=== PATIENT | male | born 1980 | race Caucasian/White ===

== ENCOUNTER 2020-09-14 13:28 | Inpatient (IN) | payer MEDICAID, OTHER ==
--- NOTE | 2020-09-14 13:56 | ED ---
General Adult HPI - General Source: patient Mode of arrival: ambulatory Limitations: no limitations <Luis Kwan D - Last Filed: 09/14/20 14:58> <Isaac Stern Waldemar - Last Filed: 09/14/20 18:16> - General Chief complaint: Psychiatric Symptoms Stated complaint: Mental health Time Seen by Provider: 09/14/20 13:43 - History of Present Illness Initial comments: Dictation was produced using [employer] dictation software. please excuse any grammatical, word or spelling errors. This patient was cared for during a federal and state declared state of emergency secondary to Covid 19 Chief Complaint: 39-year-old male presents with paranoid behavior History of Present Illness: 39-year-old male presents for paranoid behavior. He is accompanied by his best friend. Patient reports that he feels like people are following him telling him to commit suicide. He is having visual and auditory hallucinations. He has no history of psych issues. Friend when interviewed outside of the room states that there is concern that patient is having met related psychosis. Patient is visiting a friend who uses meth and reports that patient has also used meth. Patient has showing signs of bizarre behavior. Denies any psychiatric complaints. Does not take any medications. The ROS documented in this emergency department record has been reviewed and confirmed by me. Those systems with pertinent positive or negative responses have been documented in the HPI. All other systems are other negative and/or noncontributory. PHYSICAL EXAM: General Impression: Alert and oriented x3, not in acute distress HEENT: Normocephalic atraumatic, extra-ocular movements intact, pupils equal and reactive to light bilaterally, mucous membranes moist. Cardiovascular: Heart regular rate and rhythm Chest: Able to complete full sentences, no retractions, no tachypnea Abdomen: abdomen soft, non-tender, non-distended, no organomegaly Musculoskeletal: Pulses present and equal in all extremities, no peripheral melanie a Motor: no focal deficits noted Neurological: CN II-XII grossly intact, no focal motor or sensory deficits noted Skin: Intact with no visualized rashes Psych: Tangential speech ED course: 39-year-old male presents with clinical presentation consistent with psychosis. Vital Signs upon arrival are within acceptable limits. Laboratory evaluation obtained. CBC, metabolic panel is unremarkable. R otavirus negative. Urine drug screen positive for amphetamines. 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 Patient medically cleared for EPS evaluation. Patient care is signed out to oncoming physician for follow-up of the patient's recommendations. (Luis Kwan) - Related Data Home Medications Medication Instructions Recorded Confirmed No Known Home Medications 09/14/20 09/14/20 Allergies Allergy/AdvReac Type Severity Reaction Status Date / Time No Known Allergies Allergy Verified 09/14/20 14:36 Review of Systems ROS Other: All systems not noted in ROS Statement are negative. <Luis Kwan - Last Filed: 09/14/20 14:58> ROS Other: All systems not noted in ROS Statement are negative. <Isaac Stern - Last Filed: 09/14/20 18:16> ROS Statement: Those systems with pertinent positive or pertinent negative responses have been documented in the HPI. Past Medical History Past Medical History: No Reported History History of Any Multi-Drug Resistant Organisms: None Reported Past Surgical History: No Surgical Hx Reported Past Psychological History: Anxiety Smoking Status: Former smoker Past Alcohol Use History: None Reported Past Drug Use History: None Reported <Luis Kwan - Last Filed: 09/14/20 14:58> General Exam Limitations: no limitations <Luis Kwan - Last Filed: 09/14/20 14:58> Course Vital Signs 09/14/20 13:37 Temperature 98.2 F Pulse Rate 98 Respiratory 18 Rate Blood Pressure 139/89 O2 Sat by Pulse 99 Oximetry Medical Decision Making - Lab Data Result diagrams: 09/14/20 13:55 09/14/20 13:55 <Luis Kwan - Last Filed: 09/14/20 14:58> - Lab Data Result diagrams: 09/14/20 13:55 09/14/20 13:55 <Isaac Stern - Last Filed: 09/14/20 18:16> - Medical Decision Making Patient has been evaluated by EPS and will be admitted to this institution for further psychiatric evaluation and treatment. (Isaac Stern) - Lab Data Lab Results 09/14/20 09/14/20 09/14/20 Range/Units 13:55 13:55 13:55 WBC 10.6 (3.8-10.6) k/uL RBC 5.30 (4.30-5.90) m/uL Hgb 16.1 (13.0-17.5) gm/dL Hct 45.5 (39.0-53.0) % MCV 85.8 (80.0-100.0) fL MCH 30.4 (25.0-35.0) pg MCHC 35.4 (31.0-37.0) g/dL RDW 12.2 (11.5-15.5) % Plt Count 254 (150-450) k/uL MPV 9.0 Neutrophils % 68 % Lymphocytes % 20 % Monocytes % 7 % Eosinophils % 4 % Basophils % 1 % Neutrophils # 7.2 (1.3-7.7) k/uL Lymphocytes # 2.1 (1.0-4.8) k/uL Monocytes # 0.7 (0-1.0) k/uL Eosinophils # 0.4 (0-0.7) k/uL Basophils # 0.1 (0-0.2) k/uL Sodium (137-145) mmol/L Potassium (3.5-5.1) mmol/L Chloride (98-107) mmol/L Carbon Dioxide (22-30) mmol/L Anion Gap mmol/L BUN (9-20) mg/dL Creatinine (0.66-1.25) mg/dL Est GFR (CKD-EPI)AfAm (>60 ml/min/1.73 sqM) Est GFR (CKD-EPI)NonAf (>60 ml/min/1.73 sqM) Glucose (74-99) mg/dL Calcium (8.4-10.2) mg/dL Urine Opiates Screen Not Detected (NotDetected) Ur Oxycodone Screen Not Detected (NotDetected) Urine Methadone Screen Not Detected (NotDetected) Ur Propoxyphene Screen Not Detected (NotDetected) Ur Barbiturates Screen Not Detected (NotDetected) U Tricyclic Antidepress Not Detected (NotDetected) Ur Phencyclidine Scrn Not Detected (NotDetected) Ur Amphetamines Screen Detected H (NotDetected) U Methamphetamines Scrn Detected H (NotDetected) U Benzodiazepines Scrn Not Detected (NotDetected) Urine Cocaine Screen Not Detected (NotDetected) U Marijuana (THC) Screen Not Detected (NotDetected) Coronavirus (PCR) Not Detected (Not Detectd) 09/14/20 Range/Units 13:55 WBC (3.8-10.6) k/uL RBC (4.30-5.90) m/uL Hgb (13.0-17.5) gm/dL Hct (39.0-53.0) % MCV (80.0-100.0) fL MCH (25.0-35.0) pg MCHC (31.0-37.0) g/dL RDW (11.5-15.5) % Plt Count (150-450) k/uL MPV Neutrophils % % Lymphocytes % % Monocytes % % Eosinophils % % Basophils % % Neutrophils # (1.3-7.7) k/uL Lymphocytes # (1.0-4.8) k/uL Monocytes # (0-1.0) k/uL Eosinophils # (0-0.7) k/uL Basophils # (0-0.2) k/uL Sodium 138 (137-145) mmol/L Potassium 4.2 (3.5-5.1) mmol/L Chloride 105 (98-107) mmol/L Carbon Dioxide 26 (22-30) mmol/L Anion Gap 7 mmol/L BUN 12 (9-20) mg/dL Creatinine 0.71 (0.66-1.25) mg/dL Est GFR (CKD-EPI)AfAm >90 (>60 ml/min/1.73 sqM) Est GFR (CKD-EPI)NonAf >90 (>60 ml/min/1.73 sqM) Glucose 199 H (74-99) mg/dL Calcium 9.4 (8.4-10.2) mg/dL Urine Opiates Screen (NotDetected) Ur Oxycodone Screen (NotDetected) Urine Methadone Screen (NotDetected) Ur Propoxyphene Screen (NotDetected) Ur Barbiturates Screen (NotDetected) U Tricyclic Antidepress (NotDetected) Ur Phencyclidine Scrn (NotDetected) Ur Amphetamines Screen (NotDetected) U Methamphetamines Scrn (NotDetected) U Benzodiazepines Scrn (NotDetected) Urine Cocaine Screen (NotDetected) U Marijuana (THC) Screen (NotDetected) Coronavirus (PCR) (Not Detectd) Disposition <Luis Kwan - Last Filed: 09/14/20 14:58> Is patient prescribed a controlled substance at d/c from ED?: No Decision to Admit Reason: Admit from EC Decision Date: 09/14/20 Decision Time: 18:16 <Isaac Stern - Last Filed: 09/14/20 18:16> Clinical Impression: Psychosis Disposition: ADMITTED IP TO THIS HOSP Condition: Stable Referrals: None,Stated [Primary Care Provider] - 1-2 days
[2020-09-14 14:28] LABS: African American GFR (CKD) >90 (>60 ml/min/1.73 sqM); Anion Gap 7 mmol/L; Blood Urea Nitrogen 12 mg/dL (9-20); Calcium 9.4 mg/dL (8.4-10.2); Carbon Dioxide 26 mmol/L (22-30); Chloride 105 mmol/L (98-107); Glucose 199 mg/dL (74-99); Non-African American GFR(CKD) >90 (>60 ml/min/1.73 sqM); Potassium 4.2 mmol/L (3.5-5.1); Sodium 138 mmol/L (137-145)
[2020-09-14 14:36] LABS: Amphetamine Screen,Urine Detected (NotDetected); Barbiturate Screen,Urine Not Detected (NotDetected); Benzodiazepines Screen,Urine Not Detected (NotDetected); Cocaine Screen,Urine Not Detected (NotDetected); Methadone Screen, Urine Not Detected (NotDetected); Opiate Screen,Urine Not Detected (NotDetected); Oxycodone Screen, Urine Not Detected (NotDetected); Phencyclidine Screen,Urine Not Detected (NotDetected); Tricyclic Antidepressant,Urine Not Detected (NotDetected); Urn Cannabinoid Scrn Not Detected (NotDetected)
[2020-09-14 14:43] LABS: Basophils # (A) 0.1 k/uL (0-0.2); Basophils % (A) 1 %; Eosinophils # (A) 0.4 k/uL (0-0.7); Eosinophils % (A) 4 %; HCT 45.5 % (39.0-53.0); HGB 16.1 gm/dL (13.0-17.5); Lymphocytes # (A) 2.1 k/uL (1.0-4.8); Lymphocytes % (A) 20 %; MCH 30.4 pg (25.0-35.0); MCHC 35.4 g/dL (31.0-37.0); MCV 85.8 fL (80.0-100.0); Monocytes # (A) 0.7 k/uL (0-1.0); Monocytes % (A) 7 %; Neutrophils # (A) 7.2 k/uL (1.3-7.7); Neutrophils % (A) 68 %; Platelet Count 254 k/uL (150-450); RDW 12.2 % (11.5-15.5); WBC 10.6 k/uL (3.8-10.6)
[2020-09-14] MEDS ORDERED: MAG HYDROX/AL HYDROX/SIMETH 30 ML CUP PO PRN (19:13)
[2020-09-14] MEDS ORDERED: ACETAMINOPHEN TAB 325 MG TAB PO PRN (19:13)
[2020-09-14] MEDS ORDERED: MAGNESIUM HYDROXIDE 2,400 MG/10 ML CUP PO PRN (19:13)
[2020-09-14] MEDS ORDERED: LORazepam 1 MG TAB PO PRN (19:13)
[2020-09-14] MEDS ORDERED: LORazepam 2 MG/ML INJ IM PRN (19:17)
[2020-09-14] MEDS ORDERED: HALOPERIDOL LACTATE 5 MG/ML 1 ML VIAL IM PRN (19:18)
--- NOTE | 2020-09-15 00:30 | P.MDCNMH ---
History of Present Illness H&P Date: 09/14/20 Chief Complaint: medical eval 39 year old male wtih no significant past medical history patient was brought in by his fiend due to bizarre behavior , which described paranoid ideation. he feels people are watching him, and he is being followed. he also reports seeing them at times. otherwise he denies any medical concerns , denies any fever, chills, chest pain , trouble breathing, abd pain , nausea , vomiting Review of Systems Pertinent positives as noted in HPI. All other systems were reviewed and are negative Past Medical History Past Medical History: No Reported History History of Any Multi-Drug Resistant Organisms: None Reported Past Surgical History: No Surgical Hx Reported Past Anesthesia/Blood Transfusion Reactions: No Reported Reaction Past Psychological History: Anxiety Smoking Status: Vaper Past Alcohol Use History: None Reported Past Drug Use History: Methamphetamine Additional Drug Use History / Comment(s): UDS positive for Methamphetamines and amphetamines. Pt admits to meth use twice a week for the past 4 months. Also admits to adderall use - Past Family History family Family Medical History: No Reported History Medications and Allergies Home Medications Medication Instructions Recorded Confirmed Type No Known Home Medications 09/14/20 09/14/20 History Allergies Allergy/AdvReac Type Severity Reaction Status Date / Time No Known Allergies Allergy Verified 09/14/20 14:36 Physical Exam Vitals: Vital Signs Temp Pulse Pulse Resp BP BP Pulse Ox 09/14/20 22:02 98.1 F 85 16 109/72 97 09/14/20 13:37 98.2 F 98 18 139/89 99 Intake and Output 09/14/20 09/14/20 09/15/20 14:59 22:59 06:59 Other: Weight 73.482 kg 67.585 kg Constitutional: No acute distress, conversant, pleasant Eyes: Anicteric sclerae, moist conjunctiva, Pupils equal round reactive to light ENMT: NC/AT Oropharynx clear, no erythema, or exudates Neck: Supple, FROM, no masses, or JVD No carotid bruits No thyromegaly Lungs: Clear to auscultation Clear to percussion Normal respiratory effort, no accessory muscle use Cardiovascular: Heart regular in rate and rhythm, No murmurs, gallops, or rubs No peripheral edema Abdominal: Soft Nontender, no guarding, rebound or rigidity Abdomen moving with respiration Normoactive bowel sounds No hepatomegaly, No splenomegaly No palpable mass No abdominal wall hernia noted Skin: Normal temperature, tone, texture, turgor No induration No subcutaneous nodules No rash, lesions No ulcers Extremities: No digital cyanosis No clubbing Pedal pulses intact and symmetrical Radial pulses intact and symmetrical No calf tenderness Psychiatric: Alert and oriented to person, place and time Appropriate affect fair judgement Neuro Muscles Strength 5/5 in all 4 extremities Sensation to light touch grossly present throughout Cranial nerves II-XII grossly intact No focal sensory deficits Lymphatics: no palpable cervical or supraclavicular , or inguinal lymph nodes Cranial Nerve Examination - Cranial Nerves Cranial Nerve II- Optic: Intact Cranial Nerve III- Oculomotor: Intact Cranial Nerve IV- Trochlear: Intact Cranial Nerve V- Trigeminal: Intact Cranial Nerve - Abducens: Intact Cranial Nerve VII- Facial: Intact Cranial Nerve VIII- Auditory: Intact Cranial Nerve IX- Glossopharyngeal: Intact Cranial Nerve X- Vagus: Intact Cranial Nerve XI- Accessory: Intact Cranial Nerve XII- Hypoglossal: Intact Results CBC & Chem 7: 09/14/20 13:55 09/14/20 13:55 Labs: Abnormal Lab Results - Last 24 Hours (Table) 09/14/20 09/14/20 Range/Units 13:55 13:55 Glucose 199 H (74-99) mg/dL Ur Amphetamines Screen Detected H (NotDetected) U Methamphetamines Scrn Detected H (NotDetected) Assessment and Plan Assessment: acute psychosis delusional ideation management per psych hyperglycemia rule OUT DM check A1 C labs reviewed Thank you for allowing us to participate in the care of this patient. We will follow peripherally. Do not hesitate to contact us with questions. Someone can be reached from the [facility] hospitalist group at all hours of the day at [phone].
[2020-09-15] MEDS ORDERED: MELATONIN 3 MG TABLET PO PRN (11:21)
--- NOTE | 2020-09-15 13:25 | P.HP ---
Psychiatric H&P - . H&P Date: 09/15/20 History & Physical: Allergies Allergy/AdvReac Type Severity Reaction Status Date / Time No Known Allergies Allergy Verified 09/14/20 14:36 Vital Signs Temp 97.9 F 09/15/20 09:14 Pulse 80 09/15/20 06:24 Resp 16 09/15/20 06:24 BP 117/69 09/15/20 06:24 Pulse Ox 97 09/14/20 22:02 Intake & Output 09/14/20 09/15/20 09/15/20 18:59 06:59 18:59 Weight 73.482 kg 67.585 kg Laboratory Last Values WBC 10.6 k/uL (3.8-10.6) 09/14/20 13:55 RBC 5.30 m/uL (4.30-5.90) 09/14/20 13:55 Hgb 16.1 gm/dL (13.0-17.5) 09/14/20 13:55 Hct 45.5 % (39.0-53.0) 09/14/20 13:55 MCV 85.8 fL (80.0-100.0) 09/14/20 13:55 MCH 30.4 pg (25.0-35.0) 09/14/20 13:55 MCHC 35.4 g/dL (31.0-37.0) 09/14/20 13:55 RDW 12.2 % (11.5-15.5) 09/14/20 13:55 Plt Count 254 k/uL (150-450) 09/14/20 13:55 MPV 9.0 09/14/20 13:55 Neutrophils % 68 % 09/14/20 13:55 Lymphocytes % 20 % 09/14/20 13:55 Monocytes % 7 % 09/14/20 13:55 Eosinophils % 4 % 09/14/20 13:55 Basophils % 1 % 09/14/20 13:55 Neutrophils # 7.2 k/uL (1.3-7.7) 09/14/20 13:55 Lymphocytes # 2.1 k/uL (1.0-4.8) 09/14/20 13:55 Monocytes # 0.7 k/uL (0-1.0) 09/14/20 13:55 Eosinophils # 0.4 k/uL (0-0.7) 09/14/20 13:55 Basophils # 0.1 k/uL (0-0.2) 09/14/20 13:55 Sodium 138 mmol/L (137-145) 09/14/20 13:55 Potassium 4.2 mmol/L (3.5-5.1) 09/14/20 13:55 Chloride 105 mmol/L (98-107) 09/14/20 13:55 Carbon Dioxide 26 mmol/L (22-30) 09/14/20 13:55 Anion Gap 7 mmol/L 09/14/20 13:55 BUN 12 mg/dL (9-20) 09/14/20 13:55 Creatinine 0.71 mg/dL (0.66-1.25) 09/14/20 13:55 Est GFR (CKD-EPI)AfAm >90 (>60 ml/min/1.73 sqM) 09/14/20 13:55 Est GFR (CKD-EPI)NonAf >90 (>60 ml/min/1.73 sqM) 09/14/20 13:55 Glucose 199 mg/dL (74-99) H 09/14/20 13:55 Calcium 9.4 mg/dL (8.4-10.2) 09/14/20 13:55 TSH 1.840 mIU/L (0.465-4.680) 09/14/20 13:55 Urine Opiates Screen Not Detected (NotDetected) 09/14/20 13:55 Ur Oxycodone Screen Not Detected (NotDetected) 09/14/20 13:55 Urine Methadone Screen Not Detected (NotDetected) 09/14/20 13:55 Ur Propoxyphene Screen Not Detected (NotDetected) 09/14/20 13:55 Ur Barbiturates Screen Not Detected (NotDetected) 09/14/20 13:55 U Tricyclic Antidepress Not Detected (NotDetected) 09/14/20 13:55 Ur Phencyclidine Scrn Not Detected (NotDetected) 09/14/20 13:55 Ur Amphetamines Screen Detected (NotDetected) H 09/14/20 13:55 U Methamphetamines Scrn Detected (NotDetected) H 09/14/20 13:55 U Benzodiazepines Scrn Not Detected (NotDetected) 09/14/20 13:55 Urine Cocaine Screen Not Detected (NotDetected) 09/14/20 13:55 U Marijuana (THC) Screen Not Detected (NotDetected) 09/14/20 13:55 Coronavirus (PCR) Not Detected (Not Detectd) 09/14/20 13:55 09/15/20 13:16 IDENTIFYING DATA: Patient is a 39-year-old male currently lives with his roommates in a house is single has 2 kids and 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 HPI: Patient presented to the hospital yesterday with a friend due to paranoid and bizarre behavior at home. According to ER report patient was apparently complaining of people following him and having auditory and visual hallucinations. Patient apparently has no history of psychiatric issues in the past. He was admitting to methamphetamine use and had a UDS which was positive for meth. Patient was interviewed in the room and appeared to be disheveled in appearance. He claims that "I was doing things I don't remember". He states that people often telling him that he was "caught on camera" and claims that he was found wandering around aimlessly. He claims that he has been "overly scared" about his behaviors. He was alert and oriented 3. He states that this is been his first time that he has had a psychotic episode. He claims that he is using methamphetamine approximately a week ago for the past 4 months. He states that he is using approximately $50 which could last him a whole week. He states that he does have mild paranoia at this time and does not like interacting with people around him especially on the unit at this time. He claims that he is trying to keep to himself. He claims that he quit his job 2 days ago due to "feeling paranoid". He states that his mood is "pissed" however denies any depression. He is denying any anxiety at this time. He states his sleep has been fair and appetite is been poor. Patient denies any suicidal or homicidal ideations intent or plan. At this time patient denies any auditory or visual hallucinations. Patient denies any flight of ideas racing thoughts and increased in goal directed behavior. Patient admits to using methamphetamine as described above. He denies using any cigarettes and occasional alcohol. PAST PSYCHIATRIC HISTORY: Patient states that he has no psychiatric history. Patient denies being on any psychiatric medications. Patient denies any previous psychiatric hospitalizations. Patient denies any psychiatric outpatient follow- up. Patient denies any history of suicide attempts in the past. PMH:denies ALLERGIES: as per EMR CHEMICAL DEPENDENCY HISTORY: as per HPI FAMILY PSYCHIATRIC/SUBSTANCE USE HISTORY: denies SOCIAL HISTORY: Patient was born and raised in [facility]. He states that he was adopted at the age of 7. He does not know anything about his biological parents. He claims that he completed his GED and did some college in IT. He denies having any legal history. He has 2 kids, currently lives with roommates and is single and is now unemployed. MENTAL STATUS EXAM: General Appearance: Patient appears to be thin, disheveled in appearance, stated age is alert, directable, and attempts to cooperate. Patient appears to have poor hygiene and grooming. Behavior: Patient is seated without any agitated behavior. Poor eye contact Speech: Patient's speech is fluent and nonpressured. Mood/Affect: Patient reports their mood is "pissed", affect is congruent and constricted. Suicidality/Homicidality: Patient denies having any homicidal ideation intent or plan. Denies any suicidal ideations intent or plan Perceptions: Patient denies any visual hallucinations and denies any auditory hallucinations Though content/process: Vague, guarded. [place]. Poverty of content. Memory and concentration: AOX3, grossly intact for the purposes of this session. Can spell "WORLD" backwards Judgment and insight: poor STRENGTHS/WEAKNESSES: strength is that patient is resilient. 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 Patient has signed adult voluntary form and medication consent and is placed in patient's chart. -Medications : Will start patient on Risperdal 1 mg daily at bedtime for psy chosis/mood stabilization. Melatonin when necessary for insomnia. -Ativan and Haldol PRN for agitation/aggression -Patient was counselled on substance abuse and desired to cut back on use -Patient was informed of the risks, benefits and side effects of the medication and patient verbally consented to taking the medications. Patient signed med consent form and was placed in chart. -Internal Medicine consult to perform medical evaluation and physical. -NRT - not needed as patient does not smoke -SW on board for discharge planning. Encourage patient to participate in groups to work on coping skills. Patient is declining rehab at this time and states that he wants to quit "cold turkey".
[2020-09-15 16:13] LABS: Hemoglobin A1C 9.4 % (4.0-6.0)
[2020-09-15] MEDS ORDERED: risperiDONE 1 MG TAB PO SCH (21:00)
[2020-09-16 08:07] LABS: Glucose,Whole Blood 100 mg/dL (75-99)
[2020-09-16] MEDS: INSULIN ASPART (NovoLOG) 100 UNIT/ML VIAL SQ SCH ×4 (08:09→21:09)
[2020-09-16 09:58] LABS: Appearance,Urine Clear (Clear); Bacteria,Urine Rare /hpf; Bilirubin,Urine 1+ (Negative); Blood,Urine Negative (Negative); Color,Urine Yellow; Glucose,Urine (UA) 2+ (Negative); Leukocyte Esterase,Urine Negative (Negative); Mucus,Urine Many /hpf; Nitrite,Urine Negative (Negative); Protein,Urine 1+ (Negative); RBC,Urine 1 /hpf (0-5); Specific Gravity,Urine 1.032 (1.001-1.035); WBC,Urine 3 /hpf (0-5)
[2020-09-16 10:01] LABS: Ketones,Urine 3+ (Negative)
[2020-09-16 12:54] LABS: Glucose,Whole Blood 133 mg/dL (75-99)
[2020-09-16 15:03] VITALS: BMI 21.9
--- NOTE | 2020-09-16 15:05 | PN ---
PROGRESS NOTE DATE OF SERVICE: 09/16/2020. CHIEF COMPLAINT: The patient was paranoid. He had bizarre behavior at home. He was reporting auditory and visual hallucinations and believes that people were following him. INTERVAL HISTORY: Patient has been doing fair. He had a quiet day yesterday. He did not attend groups yesterday. He does come out in the day area and will interact a little with others. He tends to be quiet and keep to himself. He did attend groups today and in one group, he indicated that he was not having any thoughts about harming himself or others. He believed that he could go home and would be safe. He noted on a 1-10 scale that he rated anxiety as 0 and depression as 0. He slept fair last night. Today he has been up. When I reviewed his history, it is noted that he had been using methamphetamines about 50 dollars worth a week over the last few months. He said his last use was 10 days ago. He noted that over the last 2-1/2 weeks, he started having increasing problems with worries that likely turned into fears and paranoia. He said it seemed to start out with his getting hacked on his E-mail at work and then that seemed to be followed by a problem he had with his cellphone as well. 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 He notes that going back at least to April, he had made comments a different times to coworkers about odd things going on for him. He was aware that he was making some of these kinds statements and expressing concerns in April, May and July. It is noted that he presented to the emergency room on the at 2 p.m. On the day before that, he had gone to [facility] with similar kind of concerns. What raised his level of concern was that people around him were saying that things were happening that he did not believe were so. He thought they said that he was at someone's house and that there was a video of it from a door alarm, though he thinks that that did not happen. He said he started feeling quite anxious because he thought people were saying things were going on that he was not aware of. He does acknowledge that in the last several days, he started having fears that people were in cars and following him. He said that he could identify 30 or 40 cars and that one of the cars in the group had a sign on it specific to him. He said when he would talk about this, he realized that it sounded very bizarre and likely highly unusual, though at the same time he said his experience was that it was as real as anything else as he thinks about it today he does seem to be hesitant about whether he could acknowledge it as a clear hallucination and something in his mind as opposed to something that is real. In addition to other issues, on admission, he had a hemoglobin A1c of 9.4. On his admission blood work, his glucose was 199. Today at 12 noon, it was 133. Other lab work was unremarkable. He was started on Risperdal. He does not identify any problems with Risperdal. His main issue today is that he feels that he is ready to be discharged and does not want to continue in the hospital any longer. In the patient's history, he states that he does not identify any significant past problems with depression, anxiety or panic. He has not had a past history of hallucinations. MENTAL STATUS EXAM: Patient sat with some restlessness. Eye contact was fair at best. He answered questions with brief responses. He might say 1 or 2 words, though he did not really elaborate. He was not spontaneous or interactive. His affect was flat and anxious. His mood dysphoric. He was fairly distressed. He continues to show some indications of paranoid thinking. He voices no thoughts of harm. Cognition is clear. ASSESSMENT: I will continue the current diagnosis and treatment plan. We will continue to make efforts to engage the patient in individual and group therapeutic activities. I will increase the patient's Risperdal to 3 mg a day. I had an extensive discussion with the patient regarding treatment issues. I indicated that I would recommend continuing hospitalization at least through the weekend. The primary reason for this is the degree of delusional thinking that the patient had that may have been precipitated by drug use, though not clearly just drug induced psychosis. This would be the case given that he has been 10 days free of methamphetamines and has had the worst of these issues just in the last few days. We discussed that the course of his psychosis is unpredictable. In addition, I noted that we would get evaluation for his elevated blood sugar and get things set up for discharge planning including followup for his blood sugars as well as for mental health issues. We will [facility]. I indicated that we need additional days to assess for stability of his thoughts and appropriateness of his medication. I discussed the potential risks regarding antipsychotic medications in terms of aggravating blood sugar issues and that this will need to be taking into account as part of followup therapy. We will focus on stabilization and discharge planning. JONATHAN / KEKE: [id number] / BELEM
[2020-09-16] MEDS ORDERED: risperiDONE 1 MG TAB PO SCH (21:00)
[2020-09-16] MEDS: INSULIN DETEMIR (LEVEMIR) 100 UNIT/ML SYR SQ SCH (22:03)
[2020-09-17 06:49] VITALS: RESP 16
[2020-09-17] MEDS: INSULIN ASPART (NovoLOG) 100 UNIT/ML VIAL SQ SCH ×4 (08:57→20:16)
[2020-09-17] MEDS: INSULIN DETEMIR (LEVEMIR) 100 UNIT/ML SYR SQ SCH (20:16)
[2020-09-17] MEDS ORDERED: OLANZapine 10 MG TAB PO SCH (21:00)
--- NOTE | 2020-09-17 22:12 | PN ---
PROGRESS NOTE DATE OF SERVICE: 09/17/2020. CHIEF COMPLAINT: The patient was paranoid. He had bizarre behavior at home. He was reporting auditory and visual hallucinations and believes that people were following him. INTERVAL HISTORY: Patient has been doing fair. He had a quiet day yesterday. He comes out in the day area. He tends to keep to himself. He will interact a little with others. He chooses not to attend groups. He was quite adamant yesterday when I talked to him about the idea that he wanted discharge. When I shared with him that given the serious nature of symptoms when he came into the hospital, that I would not recommend discharge at least for a few days through the weekend to see if he tolerates his medication and to see if he gets benefit from it. I also talked to him about the significant risk of relapse to psychosis. From the patient's standpoint, he was in disagreement with what I proposed. As such, he decided that he would not take any more medication and basically said he would take medication if he were home, but not while he is on the psychiatric unit. He slept fair at best today. He has been up again. Mostly he keeps to himself. He spends a fair amount of time in his room. He has chosen not to attend groups. He continues to say that if he were home, things would be different compared to being on the unit. He noted that he has been trying to make some contact with his roommates. He believes that his roommates may not want him back at their house because of uncertainties about his condition and perhaps his behavior. He did not really explain it in any detail, though he did seem to suggest that people around him were concerned about how he was functioning and acting. He does say he has some alternative places to live. He says he does not feel that he is having any significant paranoid thinking at present. I again discussed with the patient his risk for relapse and the potential that while methadone may have induced his psychosis that it is unusual from his last use that it took 10 days for the most of it to manifest. I suggested that he may have some underlying vulnerabilities that could be set up for other reasons then just meth use. I encouraged the patient to consider at least trying an alternative medication tonight such as Zyprexa to which he was willing to give that a try. MENTAL STATUS EXAM: Patient sat without restlessness. Eye contact was fair to poor. He sat in a somewhat slumped posture. He answered questions with 1 or 2 word responses. He presented in a fairly reluctant reserved manner. He was not spontaneous or interactive. His affect was flat. His mood withdrawn. He appeared to be somewhat distressed. He continues to suggest some indications of paranoid delusions. He made reference to the 30 or 40 cars in a line saying that he does understand it is highly unusual event that it would have occurred, though he still seemed to suggest there was some sense of reality to him about that situation if not anything else. He was oriented and alert. ASSESSMENT: I will continue the current diagnosis and treatment plan. I will prescribe Zyprexa 10 mg at bedtime tonight. I discussed that we would continue the hospitalization through the weekend and to Saturday. We could work on Saturday to set up some discharge planning. I encouraged him to try the medication at least as one time issue to see if that seems to help improve some of his thoughts as well as to help him relax and maybe help him get a little better sleep tonight. We will focus on stabilization and discharge planning. MMODL / IJN: [id number] /
[2020-09-18 06:58] VITALS: BP 109/66; PULSE 63
[2020-09-18] MEDS: INSULIN ASPART (NovoLOG) 100 UNIT/ML VIAL SQ SCH ×4 (07:58→21:17)
--- NOTE | 2020-09-18 18:11 | PN ---
PROGRESS NOTE DATE OF SERVICE: 09/18/2020 CHIEF COMPLAINT: The patient was paranoid. He had bizarre behavior at home. He was reporting auditory hallucinations and visual hallucinations and believes that people were following him. INTERVAL HISTORY: Patient has been doing fair. He had a quiet day yesterday. He tends to keep to himself. He does not attend groups. He was somewhat disgruntled about the idea of continuing in the hospital through the weekend. He did consent to trying Zyprexa for the issues of thought disorder that he was having. He was started on 10 mg last night. Today, the patient said he was very sedated with Zyprexa. He slept through the night and then slept on and off much of the day today. He has been up and about a little bit this afternoon. He says he is willing to continue taking Zyprexa though prefers to have the dose cut down. He is hopeful to be discharged tomorrow. He is uncertain about what kind of followup he should be engaged in and is willing to work with social welfare research worker on followup plans. MENTAL STATUS EXAM: Patient sat without restlessness. He did not give much eye contact. He answered questions with brief responses. His thoughts were clear. His affect was somewhat constricted, though not to a significant degree. He had a reserved mood, though he did not appear to be down or depressed. He did seem to have a worried manner. There was some sense of continued underlying paranoid thinking that he would acknowledge. She voiced no thoughts of harm. Cognition was clear. ASSESSMENT: I will continue the current diagnosis and treatment plan. I will reduce Zyprexa to 5 mg at bedtime. It is noteworthy that he is much less resistant and negative about being in the hospital, perhaps just on the basis of the plans for discharge tomorrow if followup can be worked out. He also was accepting of continuing with Zyprexa. Whether or not his somewhat changed attitude might relate to some reduction in paranoid thinking remains to be seen. I had discussed with the patient that I would anticipate discharge tomorrow with Social Work setting up a followup plan for him. We will focus on stabilization and discharge planning. MMODL / IJN: [id number] /
[2020-09-18] MEDS ORDERED: OLANZapine 5 MG TAB PO SCH (21:00)
[2020-09-18] MEDS: INSULIN DETEMIR (LEVEMIR) 100 UNIT/ML SYR SQ SCH (21:17)
[2020-09-19] MEDS: INSULIN ASPART (NovoLOG) 100 UNIT/ML VIAL SQ SCH ×2 (08:00→13:05)
[2020-09-19 09:52] VITALS: TEMP 97.9
--- NOTE | 2020-09-19 11:24 | P.DS ---
Providers Date of admission: 09/14/20 18:47 Expected date of discharge: 09/19/20 Attending physician: Jabari Oreilly MD Consults: 09/14/20 19:13 Consult Physician Routine Consulting Provider: Rafaela Physician Consult Reason/Comments: history and physical/medical management Do you want consulting provider notified?: Yes Primary care physician: Stated None - Discharge Diagnosis(es) (1) Unspecified psychosis Current Visit: Yes Status: Acute Priority: High Hospital Course: Admission HPI: Admission note was completed by quality analyst/technical writer "Patient is a 39-year-old male currently lives with his roommates in a house is single has 2 kids and 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 Patient presented to the hospital yesterday with a friend due to paranoid and bizarre behavior at home. According to ER report patient was apparently complaining of people following him and having auditory and visual hallucinations. Patient apparently has no history of psychiatric issues in the past. He was admitting to methamphetamine use and had a UDS which was positive for meth. Patient was interviewed in the room and appeared to be disheveled in appearance. He claims that "I was doing things I don't remember". He states that people often telling him that he was "caught on camera" and claims that he was found wandering around aimlessly. He claims that he has been "overly scared" about his behaviors. He was alert and oriented 3. He states that this is been his first time that he has had a psychotic episode. He claims that he is using methamphetamine approximately a week ago for the past 4 months. He states that he is using approximately $50 which could last him a whole week. He states that he does have mild paranoia at this time and does not like interacting with people around him especially on the unit at this time. He claims that he is trying to keep to himself. He claims that he quit his job 2 days ago due to "feeling paranoid". He states that his mood is "pissed" however denies any depression. He is denying any anxiety at this time. He states his sleep has been fair and appetite is been poor. Patient denies any suicidal or homicidal ideations intent or plan. At this time patient denies any auditory or visual hallucinations. Patient denies any flight of ideas racing thoughts and increased in goal directed behavior. Patient admits to using methamphetamine as described above. He denies using any cigarettes and occasional alcohol." Hospital course: Upon admission to the unit patient was initially directable and agreeable to commence treatment and signed adult voluntary form. Patient got along well with other patients on the unit and followed unit protocol. Patient was compliant with the medications and denied any side effects throughout hospital course. Patient was started on Risperdal however due to the side affects and sedation patient was switched on to Zyprexa which he tolerated better for psychosis/mood. Patient spoke of his stressors and engaged in therapy both group and ind ividual. Patient was also seen by medical team for history and physical exam. Throughout the course of the hospitalization patient gradually improved with regards to mood, psychosis, sleep and became more future oriented with improved insight and judgment. On the day of discharge patient denied any suicidal or homicidal ideations intent or plan denied any auditory or visual hallucinations. Patient endorsed wanting to live for his health and family. The patient denied any access to guns or weapons. Patient denied any paranoia and did not endorse any delusions. Patient does have a significant history of substance abuse and was counseled on abstaining from all substances including alcohol and marijuana. Patient was offered however declined inpatient substance-abuse rehab. Patient elected to do outpatient substance use treatment program through [facility]. Patient was also counseled on the medications and need for regular compliance and was encouraged to follow-up with their outpatient appointment for mental health and also for primary care. Prior to discharge a family meeting will be arranged by drug abuse social worker to answer any questions and ensure safety upon discharge. Mental status exam: General Appearance: Patient appears to be thin, wearing glasses, stated age is alert, pleasant, and cooperative. Patient is in no acute distress and has improved hygiene and grooming Behavior: Patient is calmly seated without any agitated behavior. Speech: Patient's speech is fluent and nonpressured. Mood/Affect: Patient reports their mood is "better", affect is congruent Suicidality/Homicidality: Patient denies having any suicidal or homicidal ideation intent or plan. Perceptions: Patient denies any auditory or visual hallucinations. Though content/process: There is no evidence of any delusional thought content and thought process is linear and goal-directed. more future oriented Memory and concentration: AOX3, grossly intact for the purposes of this session. Can spell "WORLD" backwards correctly. 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 Patient will remain at chronically elevated risk for harm to self and/or others due to his substance abuse. -Continue medications: Zyprexa 5 mg daily at bedtime for psychosis/mood/insomnia -Patient was counseled on the need for medication compliance and appropriate follow-up at mental health and also primary care for medical issues. Patient verbalized understanding and agreed. -Social work to arrange for and conduct family meeting to ensure safety upon discharge and answer any questions/concerns. Social work also to arrange for patients follow up appointments with [facility] for psychiatric care along with follow up with primary care provider. -Patient counseled on abstaining from recreational drugs and marijuana and alcohol. Was informed/educated on the adverse effects on their physical and mental health. Patient verbally agreed and understood. Patient was offered substance abuse treatment however declined at this time. -Patient was instructed to return to the hospital or seek immediate medical care if their psychiatric or medical symptoms do worsen or reoccur. Allergies Allergy/AdvReac Type Severity Reaction Status Date / Time No Known Allergies Allergy Verified 09/14/20 14:36 Laboratory Results WBC 10.6 k/uL (3.8-10.6) 09/14/20 13:55 RBC 5.30 m/uL (4.30-5.90) 09/14/20 13:55 Hgb 16.1 gm/dL (13.0-17.5) 09/14/20 13:55 Hct 45.5 % (39.0-53.0) 09/14/20 13:55 MCV 85.8 fL (80.0-100.0) 09/14/20 13:55 MCH 30.4 pg (25.0-35.0) 09/14/20 13:55 MCHC 35.4 g/dL (31.0-37.0) 09/14/20 13:55 RDW 12.2 % (11.5-15.5) 09/14/20 13:55 Plt Count 254 k/uL (150-450) 09/14/20 13:55 MPV 9.0 09/14/20 13:55 Neutrophils % 68 % 09/14/20 13:55 Lymphocytes % 20 % 09/14/20 13:55 Monocytes % 7 % 09/14/20 13:55 Eosinophils % 4 % 09/14/20 13:55 Basophils % 1 % 09/14/20 13:55 Neutrophils # 7.2 k/uL (1.3-7.7) 09/14/20 13:55 Lymphocytes # 2.1 k/uL (1.0-4.8) 09/14/20 13:55 Monocytes # 0.7 k/uL (0-1.0) 09/14/20 13:55 Eosinophils # 0.4 k/uL (0-0.7) 09/14/20 13:55 Basophils # 0.1 k/uL (0-0.2) 09/14/20 13:55 Sodium 138 mmol/L (137-145) 09/14/20 13:55 Potassium 4.2 mmol/L (3.5-5.1) 09/14/20 13:55 Chloride 105 mmol/L (98-107) 09/14/20 13:55 Carbon Dioxide 26 mmol/L (22-30) 09/14/20 13:55 Anion Gap 7 mmol/L 09/14/20 13:55 BUN 12 mg/dL (9-20) 09/14/20 13:55 Creatinine 0.71 mg/dL (0.66-1.25) 09/14/20 13:55 Est GFR (CKD-EPI)AfAm >90 (>60 ml/min/1.73 sqM) 09/14/20 13:55 Est GFR (CKD-EPI)NonAf >90 (>60 ml/min/1.73 sqM) 09/14/20 13:55 Glucose 199 mg/dL (74-99) H 09/14/20 13:55 POC Glucose (mg/dL) 133 mg/dL (75-99) H 09/16/20 12:53 POC Glu Contract Serviceman ID 09/16/20 12:[address] Glu mg/dL 223 09/14/20 13:55 Hemoglobin A1c 9.4 % (4.0-6.0) H 09/14/20 13:55 Calcium 9.4 mg/dL (8.4-10.2) 09/14/20 13:55 TSH 1.840 mIU/L (0.465-4.680) 09/14/20 13:55 Urine Color Yellow 09/16/20 09:00 Urine Appearance Clear (Clear) 09/16/20 09:00 Urine pH 6.0 (5.0-8.0) 09/16/20 09:00 Ur Specific [place] 1.032 (1.001-1.035) 09/16/20 09:00 Urine Protein 1+ (Negative) H 09/16/20 09:00 Urine Glucose (UA) 2+ (Negative) H 09/16/20 09:00 Urine Ketones 3+ (Negative) H 09/16/20 09:00 Urine Blood Negative (Negative) 09/16/20 09:00 Urine Nitrite Negative (Negative) 09/16/20 09:00 Urine Bilirubin 1+ (Negative) H 09/16/20 09:00 Urine Urobilinogen 12.0 mg/dL (<2.0) 09/16/20 09:00 Ur Leukocyte Esterase Negative (Negative) 09/16/20 09:00 Urine RBC 1 /hpf (0-5) 09/16/20 09:00 Urine WBC 3 /hpf (0-5) 09/16/20 09:00 Urine Bacteria Rare /hpf (None) H 09/16/20 09:00 Urine Mucus Many /hpf (None) H 09/16/20 09:00 Urine Opiates Screen Not Detected (NotDetected) 09/14/20 13:55 Ur Oxycodone Screen Not Detected (NotDetected) 09/14/20 13:55 Urine Methadone Screen Not Detected (NotDetected) 09/14/20 13:55 Ur Propoxyphene Screen Not Detected (NotDetected) 09/14/20 13:55 Ur Barbiturates Screen Not Detected (NotDetected) 09/14/20 13:55 U Tricyclic Antidepress Not Detected (NotDetected) 09/14/20 13:55 Ur Phencyclidine Scrn Not Detected (NotDetected) 09/14/20 13:55 Ur Amphetamines Screen Detected (NotDetected) H 09/14/20 13:55 U Methamphetamines Scrn Detected (NotDetected) H 09/14/20 13:55 U Benzodiazepines Scrn Not Detected (NotDetected) 09/14/20 13:55 Urine Cocaine Screen Not Detected (NotDetected) 09/14/20 13:55 U Marijuana (THC) Screen Not Detected (NotDetected) 09/14/20 13:55 Coronavirus (PCR) Not Detected (Not Detectd) 09/14/20 13:55 Vital Signs Temp 97.9 F 09/19/20 09:51 Pulse 63 09/18/20 06:39 Resp 16 09/18/20 06:39 BP 109/66 09/18/20 06:39 Pulse Ox 98 09/16/20 07:05 Patient Condition at Discharge: Stable Plan - Discharge Summary Discharge Rx Participant: Yes New Discharge Prescriptions: New Insulin Detemir (Levemir) [Levemir] 10 unit SQ HS syr INSULIN ASPART (NovoLOG) [NovoLOG (formulary)] 0 unit SQ ACHS vial OLANZapine [ZyPREXA] 5 mg PO HS 30 Days tab Discharge Medication List INSULIN ASPART (NovoLOG) [NovoLOG (formulary)] 0 unit SQ ACHS vial 09/19/20 [Rx] Insulin Detemir (Levemir) [Levemir] 10 unit SQ HS syr 09/19/20 [Rx] OLANZapine [ZyPREXA] 5 mg PO HS 30 Days tab 09/19/20 [Rx] Follow up Appointment(s)/Referral(s): None,Stated [Primary Care Provider] - 1-2 days Activity/Diet/Wound Care/Special Instructions: Activity and diet as tolerated. Avoid the use of street drugs and alcohol. Take all medications as prescribed. When you are in need of refills on your medications please contact your medical provider and/or outpatient psychiatrist to have this done. Please go to scheduled outpatient appointment for aftercare treatment. If symptoms return or become worse, call the crisis line at and/or go to the nearest emergency room for evaluation. Discharge Disposition: HOME SELF-CARE
== END 2020-09-19 14:35 | disposition home or self-care (01) | DRG 885 ==
LOC: EC 13:28 → 3MHU 18:47
PROVIDERS: ADMIT Psychiatry & Neurology Psychiatry; ATTEND Psychiatry & Neurology Psychiatry
DX: F22 Delusional disorders (principal); F15.90 Other stimulant use, unspecified, uncomplicated; G47.00 Insomnia, unspecified; Z87.891 Personal history of nicotine dependence; Z20.822 Contact with and (suspected) exposure to COVID-19
CPT/HCPCS: 36415; 80048; 80306; 81001; 82075; 83036; 84443; 85025; 87635; 99285